=== PATIENT | female | born 1940 | race Caucasian/White ===

== ENCOUNTER → 2016-12-06 | Outpatient (CLI) | payer MEDICARE, BC ==
[~2016-12-06] MED LIST: ALPHA LIPOIC A100 MG; ALPHA LIPOIC A100 MG PO; ASCORBIC ACID500 M2 PO; ATENOLOL50 MG; ATENOLOL50 MG PO; CALCIUM-MAGNESI1 TA4 PO; FIBER1 G; FISH OIL500 MG; FLAX SEED OIL1000 M1; GLUCOSAMIN1 TAB.CHEW; GLUCOSAMINE-CH1 EA12 PO; LIPITOR20 MG PO; LORTAB 5/500 TA1 TA1 PO; LORTAB 5/500 TA1 TA2 PO; LORTAB 7.51 TAB; LUMIGAN; LUMIGAN2.5 ML OU; LUTEIN6 M1 PO; MAGNESIUM100 MG; MULTI-DAY VITAM1 TAB; NAPROXEN PO; PHENERGAN25 M1; PRILOSEC20 MG; SIMVASTATIN80 MG; TIMOPTIC 0.5% OP5 ML; TRIAMTERENE-HC1 EACH PO; VITAMIN D1000 UNI1 PO; ZINC15 MG; [UNRECOGNIZED DRUG - OTHER]
--- NOTE | ~2016-12-06 | CT71 ---
[facility] A Service of [facility] RADIOLOGY TEXT RESULTS PATIENT: LAUREN PIÑA LOCATION: CCAT : 40 UNIT #: [id number] AGE: [address]: Carmela Zhong APRN SEX: F ORDER DR: [id number] [facility] [address] [place], [place] [address] [id number] O MR#: [id number] Acc #: [id number] NAME: LAUREN PIÑA : 1940 SEX: F STUDY DATE/TIME: 12/06/2016 12:08 UNIT: [facility] ROOM: STUDY DESCRIPTION: CT Head Wo Contrast Attending Physician: Carmela Zhong A.P.R.N. Referring Physician: Carmela Zhong A.P.R.N. Ordering Physician: Carmela Zhong A.P.R.N. Primary Care Physician: Carmela Zhong A.P.R.N. MEDICAL IMAGING REPORT This report is preliminary unless electronic signature is present EXAM CT head, 12/06/2016. HISTORY Dizziness, off-balance. TECHNIQUE CT head performed skull base through vertex without intravenous contrast. This CT exam was performed with one or more of the following radiation dose reduction techniques: automatic exposure control, adjustment of mA and/or kV according to patient size, and iterative reconstruction. COMPARISON No comparison. FINDINGS The brain stem is unremarkable. The cerebellum and cerebral hemispheres show normal melgoza matter-white matter differentiation. No hemorrhage. No evidence of acute cortical ischemia. The midline structures are nondisplaced. Basal ganglia are intact. Ventricles, cisterns, and sulci are normal in size and contour for a patient of this age. No intra- or extraaxial mass effect or abnormal intracranial fluid collection. There are cavernous carotid arterial calcifications. Intraorbital soft tissues are unremarkable in visualized extent. The visualized paranasal sinuses and mastoid air cells show areas of mild mucosal thickening in the bilateral mastoid air cells. Correlate with any clinical signs or symptoms of mild mastoid inflammation. The bony structures are unremarkable. IMPRESSION 1. No acute abnormality is seen in the brain. If the patient has ongoing neurologic symptoms, consider follow-up imaging. 2. Vascular calcifications. [facility]. [facility] A Service of [facility] & [facility] RADIOLOGY TEXT RESULTS PATIENT: LAUREN PIÑA LOCATION: [facility] : 40 UNIT #: [id number] AGE: [address]: Carmela Zhong APRN SEX: F ORDER DR: 3. Mucosal thickening in some bilateral mastoid air cells. Correlate with any clinical signs or symptoms of mastoid inflammation. Dictated by... Mic Ordoñez M.D. THIS IS AN ELECTRONICALLY VERIFIED REPORT Mic Ordoñez M.D. at 12/07/2016 5:13 PM MARNI/neha TD: 12/06/2016 14:37 JOB #: [id number] MEDICAL IMAGING REPORT Page 1 of 1 COPY
== END | disposition home or self-care (01) ==
LOC: CCAT 11:31
DX: R42 Dizziness and giddiness (principal); R26.81 Unsteadiness on feet; I99.8 Other disorder of circulatory system
CPT/HCPCS: 70450

== ENCOUNTER → 2016-12-15 | Outpatient (CLI) | payer MEDICARE, BC ==
--- NOTE | ~2016-12-15 | US37 ---
[facility] A Service of [facility] & [facility] RADIOLOGY TEXT RESULTS PATIENT: LAUREN PIÑA LOCATION: CNIV : 40 UNIT #: [id number] AGE: [address]: Carmela Zhong APRN SEX: F ORDER DR: [id number] [facility] [address] [place], [place] [address] [id number] O MR#: [id number] Acc #: [id number] NAME: LAUREN PIÑA : 1940 SEX: F STUDY DATE/TIME: 12/15/2016 15:17 UNIT: [facility]IV ROOM: STUDY DESCRIPTION: US Carotid W/Doppler Bilateral Attending Physician: Carmela Zhong A.P.R.N. Referring Physician: Carmela Zhong A.P.R.N. Ordering Physician: Carmela Zhong A.P.R.N. Primary Care Physician: Carmela Zhong A.P.R.N. MEDICAL IMAGING REPORT This report is preliminary unless electronic signature is present EXAM Carotid Doppler, bilateral. DATE OF EXAM 12/15/2016 HISTORY Dizziness, loss of balance since 12/07/2016. Benign essential hypertension. Evaluate for carotid stenosis. FINDINGS Zaidi-scale carotid artery images were obtained as well as Doppler waveform, spectral analysis and color flow Doppler imaging. The examination was interpreted according to NASCET criteria. There is no hemodynamically significant stenosis in either carotid artery. Peak systolic velocity in the right and left internal carotid arteries is 121 cm/sec and 108 cm/sec respectively. Antegrade blood flow is seen in both vertebral arteries. There is elevated peak systolic velocity in both the right and left external carotid arteries measuring 145 cm/sec on the right and 186 cm/sec on the left suggesting degrees of stenosis bilaterally. Mild calcified plaque was seen bilaterally. IMPRESSION 1. No hemodynamically significant stenosis in either internal carotid artery 2. Antegrade blood flow in both vertebral arteries. 3. Elevated peak systolic velocity in both the right and left external carotid arteries suggesting degrees of stenosis bilaterally. Dictated by... Kael Schwab M.D. [facility] A Service of [facility] & [facility] RADIOLOGY TEXT RESULTS PATIENT: LAUREN PIÑA LOCATION: CNIV : 40 UNIT #: [id number] AGE: [address]: Carmela Zhong APRN SEX: F ORDER DR: THIS IS AN ELECTRONICALLY VERIFIED REPORT Kael Schwab M.D. at 12/16/2016 8:06 AM TK/argelia TD: 12/15/2016 20:30 JOB #: [id number] MEDICAL IMAGING REPORT Page 1 of 1 COPY
== END | disposition home or self-care (01) ==
LOC: CNIV 14:58
DX: R42 Dizziness and giddiness (principal); R26.89 Other abnormalities of gait and mobility
CPT/HCPCS: 93880

== ENCOUNTER → 2017-03-02 | Outpatient (CLI) | payer MEDICARE, BC ==
--- NOTE | ~2017-03-02 | MY29 ---
[facility] A Service of [facility] & [facility] RADIOLOGY TEXT RESULTS PATIENT: LAUREN PIÑA LOCATION: [facility] : 40 UNIT #: [id number] AGE: [address]: Carmela Zhong APRN SEX: F ORDER DR: [id number] [facility] [address] [place], [place] [address] [id number] O MR#: [id number] Acc #: [id number] NAME: LAUREN PIÑA : 1940 SEX: F STUDY DATE/TIME: 03/02/2017 9:58 UNIT: [facility] ROOM: STUDY DESCRIPTION: MY RAY SCREENING W/ CAD BILAT Attending Physician: Carmela Zhong A.P.R.N. Referring Physician: Carmela Zhong A.P.R.N. Ordering Physician: Carmela Zhong A.P.R.N. Primary Care Physician: Carmela Zhong A.P.R.N. MEDICAL IMAGING REPORT This report is preliminary unless electronic signature is present EXAM Digital screening mammogram, 03/02/17, [facility]. HISTORY 76-year-old woman. No risk elevation. Annual screen. COMPARISON Comparison mammograms date to 11/06/2006 with most recent 07/16/2015. FINDINGS Digital imaging of each breast was completed utilizing a two-view examination of each breast in craniocaudal and mediolateral-oblique projections. Review and interpretation of digital mammograms include a second review in conjunction with FDA-approved CAD device. There is a normal parenchymal presentation bilaterally consistent with the patient's age. There are no breast masses imaged and no parenchymal asymmetry is visualized. There are no suspicious microcalcifications and I see no focal architectural disturbance. IMPRESSION Negative screening digital mammogram. One-year followup recommended. Patients over the age of 40 are entered into a reminder system with target due date for the next mammogram. A result letter will also be sent to the patient. BIRADS: 1 Negative ADDENDUM Breast parenchyma is fatty replaced. Dictated by... [facility] A Service of [facility] & [facility] & [facility] RADIOLOGY TEXT RESULTS PATIENT: LAUREN PIÑA LOCATION: [facility] : 40 UNIT #: [id number] AGE: [address]: Carmela Zhong APRN SEX: F ORDER DR: Yoni Elizalde M.D. THIS IS AN ELECTRONICALLY VERIFIED REPORT Yoni Elizalde M.D. at 03/02/2017 3:28 PM MACIEL/latanya TD: 03/02/2017 13:15 JOB #: [id number] MEDICAL IMAGING REPORT Page 1 of 1 COPY
== END | disposition home or self-care (01) ==
LOC: CWCC 02-21 09:00
DX: Z12.31 Encounter for screening mammogram for malignant neoplasm of breast (principal); R92.8 Other abnormal and inconclusive findings on diagnostic imaging of breast
CPT/HCPCS: G0202